=== PATIENT | female | born 1965 | race Caucasian/White ===

== ENCOUNTER 2016-10-20 10:07 | Day surgery (SDC) | payer MEDICAID ==
[~2016-10-20 10:07] MED LIST: Midazolam 1 MG/ML 2 ML SDV ONE; Propofol 200 MG/20 ML SDV ONE; fentaNYL 100 MCG/2 ML SDV ONE
[2016-10-20] MEDS ORDERED: Lactated Ringers 1,000 ML IV SCH (11:15)
[2016-10-20] MEDS ORDERED: Lidocaine 1% 50 ML MDV ONE (11:52)
[2016-10-20] MEDS ORDERED: Propofol 200 MG/20 ML SDV ONE (11:59)
--- NOTE | 2016-10-20 12:30 | PCM.OPNOTE ---
- General Post-Op/Procedure Note Date of Surgery/Procedure: 10/20/16 Operative Procedure(s): D&C hysteroscopy Findings: normal endometrial cavity, + bleeding Pre Op Diagnosis: Abnormal uterine bleeding Post-Op Diagnosis: abnormal uterine bleeding Anesthesia Technique: Moderate Sedation, Regional Block Primary Surgeon: Harsha Berger Pathology: Endometrial curetting EBL in mLs: 50 Condition: Good
[2016-10-20 13:49] VITALS: BP 100/77
== END 2016-10-20 14:14 | disposition home or self-care (01) ==
LOC: JP.SDS 10:07
PROVIDERS: ATTEND Obstetrics & Gynecology
DX: N71.9 Inflammatory disease of uterus, unspecified (principal)
CPT/HCPCS: 58558; 88305; J2250; J2704; J3010; J7120